=== PATIENT | female | born 1970 | race Caucasian/White ===

== ENCOUNTER 2020-02-22 02:42 | Emergency (ER) | payer SELFPAY ==
--- NOTE | 2020-02-22 03:39 | ER ---
Nurse's Notes [facility] Name: Herminia Islas Age: 50 yrs Sex: Female : 1970 Arrival Date: 02/22/2020 Time: 02:46 Bed 18 Private MD: Diagnosis: Contusion of right wrist Presentation: 02/21 02:58 Chief complaint: Patient states: she had her dogs on a leash earlier tonight and they bb caused her to fall backwards onto her outstretched arms now she is having pain and swelling to her right wrist and forearm pt has had a right mastectomy. Coronavirus screen: At this time, the client does not indicate any symptoms associated with coronavirus-19. Ebola Screen: No symptoms or risks identified at this time. Initial Sepsis Screen: Does the patient meet any 2 criteria? No. Patient's initial sepsis screen is negative. Does the patient have a suspected source of infection? No. Patient's initial sepsis screen is negative. Risk Assessment: Do you want to hurt yourself or someone else? Patient reports no desire to harm self or others. Onset of symptoms was February 21, 2020. 02:58 Method Of Arrival: Ambulatory bb 02:58 Acuity: JANAY 4 bb Triage Assessment: 03:02 General: Appears uncomfortable, Behavior is calm, cooperative. Pain: Complains of pain bb in right wrist Pain currently is 8 out of 10 on a pain scale. Neuro: Level of Consciousness is awake, alert, obeys commands, Oriented to person, place, time, situation. Cardiovascular: Capillary refill Patient's skin is warm and dry. Respiratory: Airway is patent Respiratory effort is even, unlabored, Respiratory pattern is regular. GI: No signs and/or symptoms were reported involving the gastrointestinal system. Derm: Skin is pink, warm \T\ dry. Musculoskeletal: Circulation, motion, and sensation intact. Reports pain in right wrist. Injury Description: Fall injury with pain and swelling. 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 - Social history:: Smoking status: Patient reports the use of cigarette tobacco products, smokes one-half pack cigarettes per day, Patient uses alcohol, but reports only rare drinking. Patient/guardian denies using street drugs. Screenin:00 Abuse screen: Denies threats or abuse. Nutritional screening: No deficits noted. bb Tuberculosis screening: No symptoms or risk factors identified. Fall Risk Fall in past 12 months (25 points). No IV (0 pts). Ambulatory Aid- None/Bed Rest/Nurse Assist (0 pts). Gait- Normal/Bed Rest/Wheelchair (0 pts) Mental Status- Oriented to own ability (0 pts). Total Pelaez Fall Scale indicates Low Risk Score (25-44 pts). Fall prevention measures have been instituted. Side Rails Up X 2 As available Patient and Family Educated on Fall Prevention Program and strategies. Assessment: 03:00 Reassessment: No changes from previously documented assessment. see triage assessment. bb 04:02 Reassessment: Patient is alert, oriented x 3, equal unlabored respirations, skin bb warm/dry/pink. splint in place to right arm cap refill less than 3 seconds, pt verbalized understanding of and agrees to plan of care discharge instructions given pt ambulated with steady gait to exit. Vital Signs: 02:58 BP 128 / 92; Pulse 83; Resp 14 S; Temp 98(O); Pulse Ox 100% on R/A; Weight 61.23 kg bb (R); Height 5 ft. 4 in. (162.56 cm) (R); Pain 8/10; 04:05 BP 113 / 83; Pulse 87; Resp 14 S; Pulse Ox 99% on R/A; bb 02:58 Body Mass Index 23.17 (61.23 kg, 162.56 cm) bb ED Course: 02:46 Patient arrived in ED. ag3 02:51 Robert Goldberg MD is Attending Physician. tw4 02:58 Silvia Tanner, WALKER is Primary Nurse. bb 03:00 Triage completed. bb 03:00 Patient has correct armband on for positive identification. Bed in low position. Call bb light in reach. Side rails up X 1. Pulse ox on. NIBP on. Warm blanket given. 03:00 Arm band placed on left wrist. bb 03:00 No provider procedures requiring assistance completed. Patient did not have IV access bb during this emergency room visit. 03:36 Wrist Right 3 View XRAY In Process Unspecified. EDMS Administered Medications: 03:59 Not Given (Patient Refused): TORadol 60 mg IM once bb Outcome: 03:39 Discharge ordered by . tw4 04:04 Discharged to home ambulatory. bb 04:04 Condition: stable 04:04 Discharge instructions given to patient, Instructed on discharge instructions, Demonstrated understanding of instructions, follow-up care, medications, Prescriptions given X 1. 04:05 Patient left the ED. bb Signatures: Dispatcher [employer] EDMS Silvia Tanner RN RN Robert Orantes MD MD tw4 Latoya Dasilva ag3
--- NOTE | 2020-02-22 03:39 | EDPHYS ---
Physician Documentation [facility] Name: Herminia Islas Age: 50 yrs Sex: Female : 1970 Arrival Date: 02/22/2020 Time: 02:46 Bed 18 Private MD: ED Physician Robert Goldberg HPI: 02/21 06:38 This 50 yrs old Female presents to ER via Ambulatory with complaints of Arm tw4 Injury. 06:38 The patient or guardian complains of decreased range of motion, injury. The complaints tw4 affect the right wrist. Context: The problem was sustained at home, resulted from a fall. Onset: The symptoms/episode began/occurred today. Treatment prior to arrival includes: no previous treatment. Associated signs and symptoms: The patient has no apparent associated signs or symptoms. The patient has not experienced similar symptoms in the past. 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 - Social history:: Smoking status: Patient reports the use of cigarette tobacco products, smokes one-half pack cigarettes per day, Patient uses alcohol, but reports only rare drinking. Patient/guardian denies using street drugs. ROS: 06:38 Constitutional: Negative for fever, chills, and weight loss, Eyes: Negative for injury, tw4 pain, redness, and discharge, Cardiovascular: Negative for chest pain, palpitations, and edema, Respiratory: Negative for shortness of breath, cough, wheezing, and pleuritic chest pain, Abdomen/GI: Negative for abdominal pain, nausea, vomiting, diarrhea, and constipation, Back: Negative for injury and pain, MS/Extremity: Negative for injury and deformity. Exam: 06:38 Constitutional: This is a well developed, well nourished patient who is awake, alert, tw4 and in no acute distress. Head/Face: Normocephalic, atraumatic. Chest/axilla: Normal chest wall appearance and motion. Nontender with no deformity. No lesions are appreciated. Cardiovascular: Regular rate and rhythm with a normal S1 and S2. No gallops, murmurs, or rubs. Normal PMI, no JVD. No pulse deficits. Respiratory: Lungs have equal breath sounds bilaterally, clear to auscultation and percussion. No rales, rhonchi or wheezes noted. No increased work of breathing, no retractions or nasal flaring. Abdomen/GI: Soft, non-tender, with normal bowel sounds. No distension or tympany. No guarding or rebound. No evidence of tenderness throughout. Back: No spinal tenderness. No costovertebral tenderness. Full range of motion. MS/ Extremity: Pulses equal, no cyanosis. Neurovascular intact. Full, normal range of motion. Neuro: Awake and alert, GCS 15, oriented to person, place, time, and situation. Cranial nerves II-XII grossly intact. Motor strength 5/5 in all extremities. Sensory grossly intact. Cerebellar exam normal. Normal gait. Vital Signs: 02:58 BP 128 / 92; Pulse 83; Resp 14 S; Temp 98(O); Pulse Ox 100% on R/A; Weight 61.23 kg bb (R); Height 5 ft. 4 in. (162.56 cm) (R); Pain 8/10; 04:05 BP 113 / 83; Pulse 87; Resp 14 S; Pulse Ox 99% on R/A; bb 02:58 Body Mass Index 23.17 (61.23 kg, 162.56 cm) bb MDM: 02:51 Patient medically screened. tw4 06:38 Differential diagnosis: dislocation. Data reviewed: vital signs, nurses notes. Data tw4 reviewed: radiologic studies, plain films. Counseling: I had a detailed discussion with the patient and/or guardian regarding: the historical points, exam findings, and any diagnostic results supporting the discharge/admit diagnosis, the presence of at least one elevated blood pressure reading (>120/80) during this emergency department visit. Response to treatment: and as a result, I will discharge patient. Special discussion: I discussed with the patient/guardian in detail that at this point there is no indication for admission to the hospital. It is understood, however, that if the symptoms persist or worsen the patient needs to return immediately for re-evaluation. 10/11 03:06 Order name: Wrist Right 3 View XRAY tw4 02/21 03:38 Order name: Wrist Splint; Complete Time: 03:59 tw4 Administered Medications: 03:59 Not Given (Patient Refused): TORadol 60 mg IM once bb Disposition: 02/22/20 03:39 Discharged to Home. Impression: Contusion of right wrist. - Condition is Stable. - Discharge Instructions: Contusion, Wrist Pain. - Prescriptions for Tramadol 50 mg Oral Tablet - take 1 tablet by ORAL route every 8 hours as needed; 12 tablet. - Medication Reconciliation Form, Thank You Letter, Antibiotic Education, Prescription Opioid Use form. - Follow up: Private Physician; When: Upon discharge from the Emergency Department; Reason: Recheck today's complaints, Continuance of care, Re-evaluation by your physician. - Problem is new. - Symptoms have improved. Signatures: Dispatcher [employer] Silvia Narvaez RN RN Robert Orantes MD MD tw4 Corrections: (The following items were deleted from the chart) 04:05 03:39 02/22/2020 03:39 Discharged to Home. Impression: Contusion of right wrist. bb Condition is Stable. Forms are Medication Reconciliation Form, Thank You Letter, Antibiotic Education, Prescription Opioid Use. Follow up: Private Physician; When: Upon discharge from the Emergency Department; Reason: Recheck today's complaints, Continuance of care, Re-evaluation by your physician. Problem is new. Symptoms have improved. tw4
[2020-02-22 04:35] VITALS: TEMP 98
[2020-02-22 04:36] VITALS: BP 113/83; O2SAT 99
--- NOTE | 2020-02-22 08:59 | RAD REPORT ---
EXAM DESCRIPTION: RAD - Wrist Right 3 View - 02/22/2020 3:36 am CLINICAL HISTORY: Right wrist pain status post injury FINDINGS: Horizontal lucency is present within midpole of the scaphoid on the oblique view. This may represent a nondisplaced fracture or prominent trabecula and should be correlated clinically CT or MRI may be helpful for further evaluation No dislocation
== END 2020-02-22 04:05 | disposition home or self-care (01) ==
LOC: ER 02:42
DX: S60.211A Contusion of right wrist, initial encounter (principal); W19.XXXA Unspecified fall, initial encounter; Y93.9 Activity, unspecified; Y92.009 Unspecified place in unspecified non-institutional (private) residence as the place of occurrence of the external cause; F17.210 Nicotine dependence, cigarettes, uncomplicated; Z88.5 Allergy status to narcotic agent; Z88.7 Allergy status to serum and vaccine; Z85.3 Personal history of malignant neoplasm of breast; Z85.850 Personal history of malignant neoplasm of thyroid
CPT/HCPCS: 99283

== ENCOUNTER 2020-04-04 19:41 | Emergency (ER) | payer SELFPAY ==
--- NOTE | 2020-04-04 21:23 | RAD REPORT ---
EXAM DESCRIPTION: US - Extremity Venous Uni Ltd - 04/04/2020 9:16 pm CLINICAL HISTORY: SWELLING Right upper extremity swelling COMPARISON: EXT VENOUS UNI LTD dated 06/27/2015 FINDINGS: Right upper extremity venous system was interrogated with Doppler technique. Normal flow, compressibility and augmentation was noted. There is no DVT present. IMPRESSION: No evidence of right upper extremity deep venous thrombosis.
--- NOTE | 2020-04-04 21:33 | ER ---
Nurse's Notes [facility] Name: Herminia Islas Age: 50 yrs Sex: Female : 1970 Arrival Date: 04/04/2020 Time: 19:43 Bed 17 Private MD: Diagnosis: Cellulitis of right upper limb Presentation: 04/04 19:53 Chief complaint: Patient states: RUE redness and pain for 1 day. No known trauma. ll1 Coronavirus screen: Client denies travel out of the [place] in the last 14 days. At this time, the client does not indicate any symptoms associated with coronavirus-19. Ebola Screen: Patient denies travel to an Ebola-affected area in the 21 days before illness onset. Initial Sepsis Screen: Does the patient meet any 2 criteria? HR > 90 bpm. No. Patient's initial sepsis screen is negative. Does the patient have a suspected source of infection? Yes: Skin breakdown/wound. Risk Assessment: Do you want to hurt yourself or someone else? Patient reports no desire to harm self or others. Onset of symptoms was April 04, 2020. 19:53 Method Of Arrival: Ambulatory 1 19:53 Acuity: JANAY 4 ll1 Historical: - Allergies: 19:55 tetanus; ll1 19:55 Morphine; ll1 - PMHx: 19:55 breast cancer; THYROID CANCER; ll1 - PSHx: 19:55 r mastectomy; Tubal ligation; Cholecystectomy; Tonsillectomy; Hysterectomy; ll1 - Immunization history:: Flu vaccine is not up to date. - Social history:: Smoking status: Patient reports the use of cigarette tobacco products, smokes one-half pack cigarettes per day. Screenin:00 Abuse screen: Denies threats or abuse. Nutritional screening: No deficits noted. jb4 Tuberculosis screening: No symptoms or risk factors identified. Fall Risk None identified. Assessment: 20:00 General: Appears in no apparent distress. uncomfortable, Behavior is calm, cooperative, jb4 appropriate for age. Pain: Complains of pain in right elbow Pain does not radiate. Pain currently is 7 out of 10 on a pain scale. Quality of pain is described as throbbing. Neuro: Level of Consciousness is awake, alert, obeys commands, Oriented to person, place, time, situation. Cardiovascular: Patient's skin is warm and dry. Respiratory: Airway is patent Respiratory effort is even, unlabored, Respiratory pattern is regular, symmetrical. GI: No signs and/or symptoms were reported involving the gastrointestinal system. : No signs and/or symptoms were reported regarding the genitourinary system. EENT: No signs and/or symptoms were reported regarding the EENT system. Derm: Skin is intact, Skin is pink, warm \T\ dry. Rash noted that is itchy, red, raised, on dorsal aspect of right forearm and palmar aspect of right forearm. Musculoskeletal: Circulation, motion, and sensation intact. Range of motion: intact in all extremities. 21:00 Reassessment: Patient appears in no apparent distress at this time. Patient and/or jb4 family updated on plan of care and expected duration. Pain level reassessed. Patient is alert, oriented x 3, equal unlabored respirations, skin warm/dry/pink. 22:05 Reassessment: Patient appears in no apparent distress at this time. Patient and/or jb4 family updated on plan of care and expected duration. Pain level reassessed. Patient is alert, oriented x 3, equal unlabored respirations, skin warm/dry/pink. Patient states feeling better. Vital Signs: 19:53 BP 124 / 97; Pulse 107; Resp 17; Temp 99.0; Pulse Ox 100% ; Weight 63.5 kg; Height 5 ll1 ft. 4 in. (162.56 cm); Pain 6/10; 21:00 BP 118 / 88; Pulse 81; Resp 16; Pulse Ox 97% on R/A; jb4 22:00 BP 108 / 73; Pulse 94; Resp 16; Pulse Ox 97% on R/A; jb4 19:53 Body Mass Index 24.03 (63.50 kg, 162.56 cm) ll1 ED Course: 19:43 Patient arrived in ED. cf2 19:54 Triage completed. ll1 19:55 Arm band placed on Patient placed in an exam room, on a stretcher. ll1 20:00 Patient has correct armband on for positive identification. Bed in low position. Call jb4 light in reach. Side rails up X 1. Pulse ox on. NIBP on. 20:00 Warm blanket given. Ice pack to injury. jb4 20:03 Luc Rogers PA is PHCP. cp 20:03 Codey Alvarez MD is Attending Physician. cp 20:17 Julián Henson, RN is Primary Nurse. jb4 21:15 US Extremity Venous Unilateral Ltd In Process Unspecified. EDMS 21:18 Ultrasound completed. Patient tolerated well. 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 sg3 22:06 No provider procedures requiring assistance completed. Patient did not have IV access jb4 during this emergency room visit. Administered Medications: 21:32 Drug: Tylenol 1000 mg Route: PO; jb4 22:00 Follow up: Response: No adverse reaction; Pain is decreased jb4 22:05 Drug: KeFLEX 500 mg Route: PO; jb4 22:05 Follow up: Response: Medication administered at discharge. jb4 22:05 Drug: Bactrim (160 mg-800 mg (DS) 1 tablet Route: PO; jb4 22:05 Follow up: Response: Medication administered at discharge. jb4 Outcome: 21:32 Discharge ordered by MD. cp 22:06 Discharged to home ambulatory. jb4 22:06 Condition: stable 22:06 Discharge instructions given to patient, Instructed on discharge instructions, follow up and referral plans. medication usage, Demonstrated understanding of instructions, follow-up care, medications, Prescriptions given X 2. 22:06 Patient left the ED. jb4 Signatures: Dispatcher [employer] EDMS Luc Rogers PA PA cp Bryson, James, RN RN jb4 Manju Cerda sg3 Son Solorzano cf2 Ramón Browne RN RN ll1
--- NOTE | 2020-04-04 21:33 | EDPHYS ---
Physician Documentation [facility] Name: Herminia Islas Age: 50 yrs Sex: Female : 1970 Arrival Date: 04/04/2020 Time: 19:43 Bed 17 Private MD: ED Physician Codey Alvarez HPI: 04/04 20:17 This 50 yrs old Female presents to ER via Ambulatory with complaints of ARM cp SWELLING. 20:17 The patient or guardian complains of swelling, redness. The complaints affect the right cp arm. Context: resulted from unknown cause. Onset: The symptoms/episode began/occurred this morning. Treatment prior to arrival includes: no previous treatment. Associated signs and symptoms: Pertinent positives: erythema, Pertinent negatives: decreased range of motion, fever, numbness. Historical: - Allergies: 19:55 tetanus; ll1 19:55 Morphine; ll1 - PMHx: 19:55 breast cancer; THYROID CANCER; ll1 - PSHx: 19:55 r mastectomy; Tubal ligation; Cholecystectomy; Tonsillectomy; Hysterectomy; ll1 - Immunization history:: Flu vaccine is not up to date. - Social history:: Smoking status: Patient reports the use of cigarette tobacco products, smokes one-half pack cigarettes per day. ROS: 20:20 Constitutional: Negative for body aches, chills, fever, poor PO intake. cp 20:20 Cardiovascular: Negative for chest pain, edema, palpitations. 20:20 Respiratory: Negative for cough, shortness of breath, wheezing. 20:20 MS/extremity: Positive for erythema, swelling, of the right arm, Negative for injury or acute deformity, decreased range of motion, paresthesias. 20:20 All other systems are negative. Exam: 20:25 Constitutional: The patient appears in no acute distress, alert, awake, cp non-diaphoretic, non-toxic, well developed, well nourished, afebrile 20:25 Head/Face: Normocephalic, atraumatic. cp 20:25 Eyes: Periorbital structures: appear normal, Conjunctiva: normal, no exudate, no injection, Sclera: no appreciated abnormality, Lids and lashes: appear normal, bilaterally. 20:25 ENT: External ear(s): are unremarkable, Nose: is normal, Mouth: Lips: moist, Oral mucosa: moist, Posterior pharynx: Airway: no evidence of obstruction, patent. 20:25 Chest/axilla: Inspection: normal, Palpation: is normal, no crepitus, no tenderness. 20:25 Cardiovascular: Rate: tachycardic, Rhythm: regular, Pulses: Pulses are 2+ in right radial artery and left radial artery. JVD: is not appreciated. 20:25 Respiratory: the patient does not display signs of respiratory distress, Respirations: normal, no use of accessory muscles, no retractions, labored breathing, is not present, Breath sounds: are clear throughout, no decreased breath sounds, no stridor, no wheezing. 20:25 Abdomen/GI: Exam negative for discomfort, distension, guarding, Inspection: abdomen appears normal. 20:25 Musculoskeletal/extremity: Extremities: grossly normal except: noted in the right arm: erythema, swelling, tenderness, ROM: full active range of motion, in the right arm, Sensation intact. 20:25 Skin: cellulitis, that is mild, irregular, on the right arm. Vital Signs: 19:53 BP 124 / 97; Pulse 107; Resp 17; Temp 99.0; Pulse Ox 100% ; Weight 63.5 kg; Height 5 ll1 ft. 4 in. (162.56 cm); Pain 6/10; 21:00 BP 118 / 88; Pulse 81; Resp 16; Pulse Ox 97% on R/A; jb4 22:00 BP 108 / 73; Pulse 94; Resp 16; Pulse Ox 97% on R/A; jb4 19:53 Body Mass Index 24.03 (63.50 kg, 162.56 cm) ll1 MDM: 20:06 Patient medically screened. cp 20:20 Differential diagnosis: DVT, cellulitis. cp 21:30 Data reviewed: vital signs, nurses notes, radiologic studies, ultrasound, and as a cp result, I will discharge patient. 21:30 Counseling: I had a detailed discussion with the patient and/or guardian regarding: the cp historical points, exam findings, and any diagnostic results supporting the discharge/admit diagnosis, radiology results, the need for outpatient follow up, a family practitioner, to return to the emergency department if symptoms worsen or persist or if there are any questions or concerns that arise at home. 04/04 20:07 Order name: US Extremity Venous Unilateral Ltd; Complete Time: 21:24 cp Administered Medications: 21:32 Drug: Tylenol 1000 mg Route: PO; 4 22:00 Follow up: Response: No adverse reaction; Pain is decreased jb4 22:05 Drug: KeFLEX 500 mg Route: PO; jb4 22:05 Follow up: Response: Medication administered at discharge. jb4 22:05 Drug: Bactrim (160 mg-800 mg (DS) 1 tablet Route: PO; jb4 22:05 Follow up: Response: Medication administered at discharge. [facility] Disposition: 21:45 Chart complete. cp 04/05 06:04 Co-signature as Attending Physician, Codey Alvarez MD. [facility] Disposition: 04/04/20 21:32 Discharged to Home. Impression: Cellulitis of right upper limb. - Condition is Stable. - Discharge Instructions: Cellulitis, Adult. - Prescriptions for Keflex 500 mg Oral Capsule - take 1 capsule by ORAL route every 8 hours for 10 days; 30 capsule. Bactrim DS 800- 160 mg Oral Tablet - take 1 tablet by ORAL route every 12 hours for 10 days; 20 tablet. - Medication Reconciliation Form, Thank You Letter, Antibiotic Education, Prescription Opioid Use form. - Follow up: Private Physician; When: 1 - 2 days; Reason: Recheck today's complaints. - Problem is new. - Symptoms have improved. Signatures: Dispatcher [employer] EDMS Luc Rogers PA PA cp Julián Henson RN RN jb4 Ramón Browne RN RN ll1 Codey Alvarez MD MD [id number] Corrections: (The following items were deleted from the chart) 04/04 22:06 21:32 04/04/2020 21:32 Discharged to Home. Impression: Cellulitis of right upper limb. jb4 Condition is Stable. Forms are Medication Reconciliation Form, Thank You Letter, Antibiotic Education, Prescription Opioid Use. Follow up: Private Physician; When: 1 - 2 days; Reason: Recheck today's complaints. Problem is new. Symptoms have improved. cp
[2020-04-04] MEDS ORDERED: ACETAMINOPHEN 500 MG TAB ONE (21:34)
[2020-04-04] MEDS ORDERED: SMZ./TMP. 800/160 MG TABLET ONE (22:13)
[2020-04-04] MEDS ORDERED: CEPHALEXIN 250 MG CAP ONE (22:13)
[2020-04-05 02:58] VITALS: O2SAT 97
[2020-04-05 03:00] VITALS: BP 108/73
[2020-04-05 03:36] VITALS: TEMP 99
== END 2020-04-04 22:06 | disposition home or self-care (01) ==
LOC: ER 19:41
DX: L03.113 Cellulitis of right upper limb (principal); F17.210 Nicotine dependence, cigarettes, uncomplicated; Z85.3 Personal history of malignant neoplasm of breast; Z85.850 Personal history of malignant neoplasm of thyroid; Z88.5 Allergy status to narcotic agent; Z88.7 Allergy status to serum and vaccine
CPT/HCPCS: 93971; 99284

== ENCOUNTER 2024-04-25 14:45 | Emergency (ER) | payer OTHER, SELFPAY ==
[2024-04-25 16:23] LABS: Absolute Basophils 0.1 K/uL (0-0.5); Absolute Eosinophils 0.3 K/uL (0-0.5); Absolute Lymphocytes (CBC) 2.5 K/uL (0.7-4.9); Absolute Monocytes 0.7 K/uL (0.1-1.3); Absolute Neutrophil 4.3 K/uL (1.8-8.0); Basophils % 1.2 % (0-1.3); Eosinophils % 4.1 % (0-4.4); Hematocrit 42.2 % (36.0-45.0); Hemoglobin 13.7 g/dL (12.0-15.0); Lymphocytes % 32.2 % (15.3-44.8); MCH 29.3 pg (27.0-35.0); MCHC 32.4 g/dL (32.0-36.0); MCV 90.4 fL (80-100); MPV 9.3 fL (7.6-11.3); Monocytes % 8.4 % (3.3-12.3); Neutrophils % 54.1 % (41.7-73.7); Platelets 203 thou/uL (152-406); RBC Red Blood Cell Count 4.67 M/uL (3.86-4.86); Red Cell Distribution Width 14.3 % (12.1-15.2)
[2024-04-25] MEDS ORDERED: ONDANSETRON 4 MG/2 ML VIAL ONE (16:25)
[2024-04-25] MEDS ORDERED: FENTANYL CITR 100 MCG/2 ML ONE (16:25)
[2024-04-25 16:28] LABS: Specific Gravity 1.027 (1.005-1.030); Sqamous Epithelial <5 /HPF (None Seen); Urine Bacteria None Seen /HPF (<20); Urine Bilirubin NEGATIVE (Negative); Urine Blood Negative (Negative); Urine Clarity Turbid (Clear); Urine Color Yellow (Yellow); Urine Crystals Unidentified Few /HPF (None Seen); Urine Culture Reflex Order NOT NEEDED; Urine Glucose NEGATIVE (Negative); Urine Ketones NEGATIVE (Negative); Urine Microscopic Reflex YN ORDER UMIC; Urine Mucus Slight /HPF (None Seen); Urine Nitrite NEGATIVE (Negative); Urine Protein NEGATIVE (Negative); Urine RBC <5 /HPF (None Seen); Urine Urobilinogen Normal (Normal); Urine WBC <5 /HPF (<5); Urine WBC Clump Rare /HPF (None Seen); Urine Yeast (Budding) Trace /HPF (None Seen); Urine pH 5.5 (5.0-7.0)
[2024-04-25 16:32] LABS: Albumin 3.3 g/dL (3.4-5.0); Albumin/Globulin Ratio 0.9 (1.1-1.8); Anion Gap 5.6 mEq/L (5.0-15.0); Bilirubin Total 0.4 mg/dL (0.2-1.0); Globulin 3.7 g/dL (2.3-3.5)
[2024-04-25 16:33] LABS: Potassium 4.6 mEq/L (3.5-5.1)
--- NOTE | 2024-04-25 17:06 | RAD REPORT ---
EXAMINATION: CT ABDOMEN AND PELVIS WITH CONTRAST CLINICAL INDICATION: Female, 54 years old.ABD PAIN TECHNIQUE: CT abdomen and pelvis was performed, after the administration of IV contrast, as per [facility] protocol. Axial, sagittal and coronal reconstructions were obtained. One or more of the following dose reduction techniques were used: Automated exposure control, adjustment of the mA and/o r kV according to patient size, and/or iterative reconstruction. Unless otherwise specified, incidental findings do not require dedicated imaging follow-up. [id number]. COMPARISON: No prior exam. FINDINGS: LOWER CHEST: The visualized lung bases are clear. LIVER: Normal in size and contour. No focal lesion. GALLBLADDER/BILE DUCT: Cholecystectomy?dilated extra hepatic common bile duct may be secondary to the postcholecystectomy state. Common bile duct measures up to 11 mm. It does taper distally towards the ampulla. PANCREAS: No significant abnormality. SPLEEN: Normal size. No focal lesion. ADRENALS: Normal; no mass. KIDNEYS AND URETERS: Normal size and contour. No hydronephrosis. GASTROINTESTINAL TRACT: Stomach is non-dilated. Small bowel has normal course and caliber. No colonic wall thickening or pericolonic inflammatory changes. PERITONEUM: No ascites. LYMPH NODES: No lymphadenopathy. ABDOMINAL AORTA AND OTHER VESSELS: Normal caliber aorta and IVC. URINARY BLADDER: Normal contour. REPRODUCTIVE ORGANS: No pathologic process hysterectomy. MUSCULOSKELETAL: No acute or suspicious osseous abnormality. Grade 1 anterolisthesis of L4 and L5. ADDITIONAL FINDINGS: None. IMPRESSION: No acute or significant abnormalities seen in the abdomen or pelvis. Cholecystomy. Extra hepatic bili ignacia duct dilatation may be secondary to the postcholecystectomy state. Correlate with LFTs. If abnormal, could consider MRCP for further evaluation.
--- NOTE | 2024-04-25 17:24 | ER ---
Nurse's Notes [facility] Name: Herminia Islas Age: 54 yrs Sex: Female : 1970 Arrival Date: 04/25/2024 Time: 14:45 Bed 14 Private MD: Diagnosis: Lower abdominal pain, unspecified Presentation: 04/25 14:59 Chief complaint: Patient states: abdominal pain in RLQ since this morning. Coronavirus ko1 screen: At this time, the client does not indicate any symptoms associated with coronavirus-19. Ebola Screen: No symptoms or risks identified at this time. Initial Sepsis Screen: Does the patient meet any 2 criteria? No. Patient's initial sepsis screen is negative. Does the patient have a suspected source of infection? No. Patient's initial sepsis screen is negative. Risk Assessment: Do you want to hurt yourself or someone else? Patient reports no desire to harm self or others. Onset of symptoms was April 25, 2024. 14:59 Method Of Arrival: Ambulatory ko1 14:59 Acuity: JANAY 3 ko1 Triage Assessment: 15:02 General: Appears uncomfortable, Behavior is calm, cooperative, appropriate for age. ko1 Pain: Complains of pain in right lower quadrant. GI: Reports lower abdominal pain, nausea. Historical: - Allergies: 15:02 Morphine; ko1 15:02 tetanus; ko1 - PMHx: 15:02 breast cancer; THYROID CANCER; ko1 - PSHx: 15:02 Cholecystectomy; ko1 - Immunization history:: Adult Immunizations unknown. - Infectious Disease History:: Denies. - Social history:: Smoking status: Patient reports the use of cigarette tobacco products, smokes one pack cigarettes per day. Screenin:20 [facility] ED Fall Risk Assessment (Adult) History of falling in the last 3 months, tm6 including since admission No falls in past 3 months (0 pts) Confusion or Disorientation No (0 pts) Intoxicated or Sedated No (0 pts) Impaired Gait No (0 pts) Mobility Assist Device Used No (0 pt) Altered Elimination No (0 pt) Score/Fall Risk Level 0 - 2 = Low Risk Oriented to surroundings, Maintained a safe environment, Educated pt \T\ family on fall prevention, incl call for assistance when getting out of bed. Abuse screen: Denies threats or abuse. Denies injuries from another. Nutritional screening: No deficits noted. Tuberculosis screening: No symptoms or risk factors identified. Assessment: 15:20 General: Appears in no apparent distress. uncomfortable, Behavior is calm, cooperative. tm6 Pain: Complains of pain in right lower quadrant Pain currently is 8 out of 10 on a pain scale. Neuro: Level of Consciousness is awake, alert, obeys commands, Oriented to person, place, time, situation. Cardiovascular: Patient's skin is warm and dry. Respiratory: Airway is patent Respiratory effort is even, unlabored, Respiratory pattern is regular, symmetrical. GI: Bowel sounds present X 4 quads. Abd is soft Abdomen is tender to palpation in right lower quadrant Reports lower abdominal pain. : No signs and/or symptoms were reported regarding the genitourinary system. EENT: No signs and/or symptoms were reported regarding the EENT system. Derm: No signs and/or symptoms reported regarding the dermatologic system. Musculoskeletal: No signs and/or symptoms reported regarding the musculoskeletal system. 17:51 Reassessment: Patient and/or family updated on plan of care and expected duration. Pain tm6 level reassessed. Patient is alert, oriented x 3, equal unlabored respirations, skin warm/dry/pink. Vital Signs: 14:59 BP 111 / 84; Pulse 95; Resp 18; Temp 97; Pulse Ox 97% ; ko1 16:37 BP 113 / 75; Pulse 87; Pulse Ox 97% on R/A; MAP 87 mmHg; Pain 10/10; tm6 17:50 BP 103 / 84; Pulse 83; Resp 16; Temp 97; Pulse Ox 99% on R/A; MAP 91 mmHg; Pain 5/10; tm6 16:37 Pain Scale: Adult tm6 17:50 Pain Scale: Adult tm6 ED Course: 14:48 Patient arrived in ED. mr 14:52 Kenny Hernandez MD is Attending Physician. sp3 14:53 Edel Sandoval FNP-C [facility] kb 15:02 Triage completed. ko1 15:02 Arm band placed on right wrist. Patient placed in waiting room, Patient notified of ko1 wait time. 15:20 Patient has correct armband on for positive identification. Bed in low position. Call tm6 light in reach. Side rails up X 1. Provided Education on: use of call madrigal. Client placed on continuous cardiac and pulse oximetry monitoring. NIBP monitoring applied. Pulse ox on. NIBP on. Door closed. Noise minimized. 15:56 Enoch Casey, RN is Primary Nurse. tm6 16:07 CBC with Diff Sent. tm6 16:07 CMP Sent. tm6 16:07 Lipase Sent. tm6 16:08 Missed attempt(s): 22 gauge in right antecubital area. Bleeding controlled, band aid tm6 applied, catheter tip intact. 16:22 Urinalysis w/ reflexes Sent. em1 16:23 Inserted saline lock: 22 gauge in left antecubital area, using aseptic technique. Blood em1 collected. Flushed with 10 mL NS. 16:55 CT Abd/Pelvis - IV Contrast Only In Process Unspecified. EDMS 17:52 No provider procedures requiring assistance completed. IV discontinued, intact, tm6 bleeding controlled, No redness/swelling at site. Pressure dressing applied. Administered Medications: 16:37 Drug: Ondansetron IVP 4 mg IVP once; over 2 minutes Route: IVP; Site: left antecubital; tm6 17:50 Follow up: Response: No adverse reaction tm6 16:37 Drug: NS 0.9% IV 1000 ml IV at 1 bolus Per protocol; to be given as a bolus over 60 tm6 minutes Route: IV; Rate: 1 bolus; Site: left antecubital; 17:50 Follow up: Response: No adverse reaction; IV Status: Completed infusion; IV Intake: tm6 1000ml 16:37 Drug: fentaNYL (PF) IVP 50 mcg IVP once Route: IVP; Site: left antecubital; tm6 17:50 Follow up: Response: No adverse reaction tm6 Medication: 15:20 VIS not applicable for this client. tm6 Intake: 17:50 IV: 1000ml; Total: 1000ml. tm6 Outcome: 17:23 Discharge ordered by MD. valdez 17:53 Discharged to home ambulatory, with family, tm6 17:53 Condition: stable 17:53 Discharge instructions given to patient, family, Instructed on discharge instructions, follow up and referral plans. medication usage, Demonstrated understanding of instructions, follow-up care, medications, Prescriptions given X 2, 17:53 Patient left the ED. tm6 Signatures: Dispatcher [employer] EDMS Edel Sandoval, JOSLYN-C DIRECTOR TELEVISION NEWS-Myriam Leonard Reg Reg mr Tomas Santana em1 Kenny Hernandez MD MD sp3 Vivian Sweeney, WALKER RN ko1 Enoch Casey RN RN tm6
--- NOTE | 2024-04-25 17:25 | EDPHYS ---
Physician Documentation [facility] Name: Herminia Islas Age: 54 yrs Sex: Female : 1970 Arrival Date: 04/25/2024 Time: 14:45 Bed 14 Private MD: ED Physician Kenny Hernandez HPI: 04/25 16:13 This 54 yrs old Female presents to ER via Ambulatory with complaints of Abdominal Pain, kb Nausea. 16:13 Pt is a 54 year old female who presents for RLQ pain and nausea that started this kb morning and has progressively gotten worse. Denies fever, diarrhea, vomiting. No aggravating or alleviating factors. Historical: - Allergies: 15:02 Morphine; ko1 15:02 tetanus; ko1 - PMHx: 15:02 breast cancer; THYROID CANCER; ko1 - PSHx: 15:02 Cholecystectomy; ko1 - Immunization history:: Adult Immunizations unknown. - Infectious Disease History:: Denies. - Social history:: Smoking status: Patient reports the use of cigarette tobacco products, smokes one pack cigarettes per day. ROS: 16:13 Constitutional: As per HPI kb Exam: 16:13 Constitutional: This is a well developed, well nourished patient who is awake, alert, kb and in no acute distress. Head/Face: Normocephalic, atraumatic. ENT: Moist Mucous membranes Cardiovascular: Regular rate Respiratory: Respirations even and unlabored. No increased work of breathing. Talking in full sentences Skin: Warm, dry with normal turgor. Normal color. MS/ Extremity: Pulses equal, no cyanosis. Neurovascular intact. Full, normal range of motion. Neuro: Awake and alert, GCS 15, oriented to person, place, time, and situation. 16:13 Abdomen/GI: Inspection: abdomen appears normal, Bowel sounds: normal, Palpation: soft, in all quadrants, moderate abdominal tenderness, in the right lower quadrant, Vital Signs: 14:59 BP 111 / 84; Pulse 95; Resp 18; Temp 97; Pulse Ox 97% ; ko1 16:37 BP 113 / 75; Pulse 87; Pulse Ox 97% on R/A; MAP 87 mmHg; Pain 10/10; tm6 17:50 BP 103 / 84; Pulse 83; Resp 16; Temp 97; Pulse Ox 99% on R/A; MAP 91 mmHg; Pain 5/10; tm6 16:37 Pain Scale: Adult tm6 17:50 Pain Scale: Adult tm6 MDM: 14:53 Medical Screening Exam initiated kb 17:22 Differential diagnosis: appendicitis, diverticulitis, non-specific abd pain. Data kb reviewed: vital signs, nurses notes. Historians other than the Patient: Family Member: family. Counseling: I had a detailed discussion with the patient and/or guardian regarding the historical points, exam findings, and any diagnostic results supporting the discharge/admit diagnosis, lab results, radiology results, the need for outpatient follow up, a family practitioner, to return to the emergency department if symptoms worsen or persist or if there are any questions or concerns that arise at home. ED course: Pt tolerating po intake, nontoxic in appearance, vss. LFTs normal. Educated on diagnostic results and need for follow up if symptoms persist. Verbal understanding received. . 17:23 Discussion of test interpretation with radiology: I had a discussion with radiology kb regarding a test interpretation. Normal appendix per Day. 04/25 15:05 Order name: CBC with Diff; Complete Time: 16:27 kb 04/25 15:05 Order name: CMP; Complete Time: 16:35 kb 04/25 15:05 Order name: Lipase; Complete Time: 16:35 kb 04/25 15:05 Order name: Urinalysis w/ reflexes; Complete Time: 16:31 kb 04/25 15:05 Order name: CT Abd/Pelvis - IV Contrast Only; Complete Time: 17:09 kb 04/25 15:05 Order name: IV Saline Lock; Complete Time: 16:21 kb 04/25 15:05 Order name: Labs collected and sent; Complete Time: 16:21 kb Administered Medications: 16:37 Drug: Ondansetron IVP 4 mg IVP once; over 2 minutes Route: IVP; Site: left antecubital; tm6 17:50 Follow up: Response: No adverse reaction tm6 16:37 Drug: NS 0.9% IV 1000 ml IV at 1 bolus Per protocol; to be given as a bolus over 60 tm6 minutes Route: IV; Rate: 1 bolus; Site: left antecubital; 17:50 Follow up: Response: No adverse reaction; IV Status: Completed infusion; IV Intake: tm6 1000ml 16:37 Drug: fentaNYL (PF) IVP 50 mcg IVP once Route: IVP; Site: left antecubital; tm6 17:50 Follow up: Response: No adverse reaction tm6 Disposition Summary: 04/25/24 17:23 Discharge Ordered Notes: Location: Home kb Condition: Stable kb Diagnosis - Lower abdominal pain, unspecified kb Followup: kb - With: Emergency Department - When: As needed - Reason: Worsening of condition Followup: kb - With: Private Physician - When: 2 - 3 days - Reason: Recheck today's complaints, Continuance of care, Re-evaluation by your physician Discharge Instructions: - Discharge Summary Sheet kb - Abdominal Pain, Adult, [id number] kb Forms: - Medication Reconciliation Form kb - Antibiotic Education kb - Prescription Opioid Use kb - Patient Portal Instructions kb - Leadership Thank You Letter kb Prescriptions: - Zofran 4 mg Oral tablet - take 1 tablet ORAL route every 6 hours As needed; 20 tablet; Refills: 0, kb Product Selection Permitted - dicyclomine 20 mg Oral tablet - take 1 tablet ORAL route 4 times per day As needed; 20 tablet; Refills: 0, kb Product Selection Permitted Signatures: Dispatcher [employer] EDMS Edel Sandoval, JINRIKISHA DRIVER-C JINRIKISHA DRIVER-Vivian Crouch, RN RN ko1 Enoch Casey, RN RN tm6 Corrections: (The following items were deleted from the chart) 17:24 17:22 ED course: Pt tolerating po intake, nontoxic in appearance, vss. Educated on kb diagnostic results and need for follow up if symptoms persist. Verbal understanding received. . kb
[2024-04-25 18:10] VITALS: TEMP 97
[2024-04-25 18:12] VITALS: BP 103/84; O2SAT 99
== END 2024-04-25 17:53 | disposition home or self-care (01) ==
LOC: ER 14:45
DX: R10.31 Right lower quadrant pain (principal)
CPT/HCPCS: 36415; 74177; 80053; 81001; 83690; 85025; 96361; 96374; 96375; 99284; J2405; J3010; Q9967